=== PATIENT | female | born 1985 | race African-American/Black ===

== ENCOUNTER 2020-06-24 12:43 | Emergency (ER) | payer MEDICAID, OTHER, SELFPAY ==
[2020-06-24 14:13] LABS: #Basophils 0.1 thou/uL (0.0-0.2); #Eosinphils 0.2 thou/uL (0.0-0.7); #Monocytes 0.6 thou/uL (0.11-0.59); #Neutrophils 5.3 thou/uL (1.40-6.50); %Basophils 0.8 % (0.0-1.0); %Lymphocytes 24.3 % (21.0-51.0); %Monocytes 7.4 % (0.0-10.0); %Neutrophils 65.6 % (42.0-75.0); Hemoglobin 9.8 g/dL (12.0-16.0); Mean Corpuscular HGB CONC 30.9 g/dL (32.0-36.0); Mean Platelet Volume 9.8 fL (7.4-10.4); Platelet Count 378 thou/uL (130-400); RBC Distribution Width 16.5 % (11.5-14.5); Red Blood Cell (RBC) Count 4.66 mill/uL (4.20-5.40); White Blood Cell (WBC) Count 8.1 thou/uL (4.8-10.8)
[2020-06-24 14:37] LABS: Anisocytosis SLIGHT = 6-15 cells (100X) (0-5/hpf); Hypochromia SLIGHT = 6-15 cells (100X) (0-5/hpf); MDiff Complete? YES; Microcytosis SLIGHT = 6-15 cells (100X) (0-5/hpf); Ovalocytes SLIGHT = 2-5 cells (100X) (0-1/hpf); Platelet Morphology Comment Appears Adequate; Poikilocytosis SLIGHT = 6-15 cells (100X) (0-5/hpf); Polychromasia SLIGHT = 2-3 cells (100X) (0-2/hpf); Schistocytes SLIGHT = 2-5 cells (100X) (0-1/hpf)
[2020-06-24 16:54] LABS: Bacteria/HPF None Seen HPF (None Seen); Bilirubin Negative (Negative); Blood, Urine 3+ (Negative); Clarity Clear (Clear); Glucose, Urine (Dipstick) Normal (Negative); Ketone, Urine Negative (Negative); Leukocyte Negative Leu/uL (Negative); Mucous/LPF 2+ LPF (<2+); Nitrite Negative (Negative); Protein, Urine (Dipstick) 30 mg/dL (Neg-Trace); RBC/HPF Greater than 50 HPF (0-3); Specific Gravity, Urine 1.027 (1.002-1.036); Squamous Epithelial 0-3 HPF (0-3); Urobilinogen Normal mg/dL (Less than 2); pH, Urine 5.5 (5.0-9.0)
--- NOTE | 2020-06-24 17:34 | ULT ---
FIRST TRIMESTER OBSTETRICAL ULTRASOUND INDICATION: TECHNIQUE: Grayscale, M-mode Doppler, color Doppler and spectral Doppler images were obtained. Jeremiahin yoana is focused on the clinical indication. Transabdominal and transvaginal exam was performed. COMPARISON: Prior pelvic ultrasound dated January 27, 2015 and October 09, 2010 FINDINGS: Uterus: The uterus measured 13.7 x 4.4 x 6.7cm.There is a small subserosal fibroid involving the left anterio r lower uterine segment that is slightly smaller than seen on the prior pelvic ultrasound examinations measuring 2 x 1.6 x 2.1 cm. An additional smaller intramural fibroid is seen involving t he left aspect of the fundus measuring 2.4 x 2.2 x 1.4 cm. There is a nonvascular fluid collection within the lower cervix which may reflect hemorrhagic debris versus expelled products of conception. The endometrial stripe measured 8.8 mm. Intrauterine gestation: None. Yolk Sac:Not applicable Pole :Not applicable heart rate: Not applicable bpm. Subchorionic Hemorrhage: Not applicable BIOMETRY: Not applicable. Ovaries: RIGHT OVARY: 2.2 x 2.3 x 2.4 cm. Mass: None. Flow: Normal LEFT OVARY: Not visualized. CUL-DE-SAC: No free fluid IMPRESSION: 1. Findings suspicious for an in progress. There is a complex fluid collection seen within t he lower cervix which may reflect hemorrhagic debris or expelled products of conception. Continued clinical and sonographic follow-up as necessary is recommended. No intrauterine gestation demonstrate d. Ectopic and early are unlikely but not entirely excluded based on the provided imaging. 2. Fibroid uterus. 3. Nonvisualization of the left ovary.
[2020-06-24] MEDS ORDERED: Misoprostol 200 MCG TAB PO SCH (18:45)
== END 2020-06-24 19:30 | disposition home or self-care (01) ==
LOC: ERS 12:43
DX: O03.4 Incomplete spontaneous abortion without complication (principal)
CPT/HCPCS: 36415; 76856; 81003; 81015; 84702; 85025; 86900; 86901; 88305

== ENCOUNTER 2021-09-28 22:04 | Emergency (ER) | payer OTHER ==
[2021-09-28] MEDS ORDERED: Fluorescein Opthalmic Strip ONE (22:53)
[2021-09-28] MEDS ORDERED: Budesonide 0.5 MG/2 ML NEB ONE (22:53)
[2021-09-28] MEDS ORDERED: Proparacaine 0.5% Opth 15 ML BOT ONE (22:54)
== END 2021-09-28 23:40 | disposition home or self-care (01) ==
LOC: ERS 22:04
DX: S00.83XA Contusion of other part of head, initial encounter (principal); W34.011A Accidental discharge of paintball gun, initial encounter
CPT/HCPCS: 99283; J7626

== ENCOUNTER 2021-12-24 16:01 | Emergency (ER) | payer OTHER ==
[2021-12-24] MEDS ORDERED: HYDROcodone/Acetaminophen 5/325 mg Tablet ONE (18:49)
== END 2021-12-24 19:24 | disposition home or self-care (01) ==
LOC: ERS 16:01
DX: S92.214A Nondisplaced fracture of cuboid bone of right foot, initial encounter for closed fracture (principal); V89.2XXA Person injured in unspecified motor-vehicle accident, traffic, initial encounter
CPT/HCPCS: 29125